=== PATIENT | male | born 1995 | race African-American/Black ===

== ENCOUNTER 2017-09-15 16:57 | Emergency (ER) | payer OTHER ==
[~2017-09-15] VITALS: Ht 175.3 cm; Wt 72.7 kg
[~2017-09-15 16:57] MED LIST: DEPAKOTE ER500 MG PO; ENDOCET 5-3251 EACH PO; LAMICTAL25 MG PO; LITHIUM CARBON450 MG PO; NAPROSYN500 MG PO; NORCO 5/3251 TABLET PO; PRAZOSIN HCL1 MG PO; RISPERDAL; RISPERDAL0.5 MG PO; RISPERIDONE1 MG PO
[2017-09-15 17:49] LABS: HEMATOCRIT 42.1 % (38.0-50.0); HEMOGLOBIN 12.9 G/DL (12.5-16.6); MCH 27.9 PG (29.0-34.0); MCHC 30.6 G/DL (30.0-36.0); MCV 90.9 FL (86-99); PLATELET COUNT 211 K/uL (156-360); RBC DIS.WIDTH-CV 12.3 % (11.8-14.6); RBC DIS.WIDTH-SD 41.4 % (39-53); RED BLOOD COUNT 4.63 M/uL (4.00-5.50); WHITE BLOOD COUNT 5.9 K/uL (4.1-10.2)
[2017-09-15 18:00] LABS: CHLORIDE 105 mEq/L (99-109); POTASSIUM 4.3 mEq/L (3.7-5.4); SODIUM 138 mEq/L (136-147)
[2017-09-15 18:02] LABS: GLUCOSE 69 mg/dL (70-99)
[2017-09-15 18:06] LABS: CREATININE 1.1 mg/dL (0.6-1.3); GFR ESTIMATE (CALCULATED) > 59 mL/min/ (58.99-99999)
[2017-09-15 18:07] LABS: UREA NITROGEN (BUN) 9 mg/dL (9-23)
[2017-09-15 18:10] LABS: TROP-I INTERPRETATION NEGATIVE; TROPONIN-I < 0.01 ng/mL (0.0-0.30)
[2017-09-15 20:07] VITALS: BP 147/91
== END 2017-09-15 20:09 | disposition home or self-care (01) ==
LOC: EME 16:57
PROVIDERS: Emergency Medicine
DX: R42 Dizziness and giddiness (principal); E86.0 Dehydration; F32.9 Major depressive disorder, single episode, unspecified; F43.10 Post-traumatic stress disorder, unspecified; R56.9 Unspecified convulsions
CPT/HCPCS: 80048; 84484; 85027; 93005; 99281; 99284; J7030

== ENCOUNTER 2017-09-18 09:55 | Emergency (ER) | payer OTHER ==
[~2017-09-18] VITALS: Ht 175.3 cm; Wt 72.7 kg
[2017-09-18 10:37] LABS: HEMATOCRIT 42.9 % (38.0-50.0); HEMOGLOBIN 13.4 G/DL (12.5-16.6); MCH 28.3 PG (29.0-34.0); MCHC 31.2 G/DL (30.0-36.0); MCV 90.5 FL (86-99); RBC DIS.WIDTH-CV 12.2 % (11.8-14.6); RBC DIS.WIDTH-SD 40.3 % (39-53); RED BLOOD COUNT 4.74 M/uL (4.00-5.50); WHITE BLOOD COUNT 5.3 K/uL (4.1-10.2)
[2017-09-18 10:49] LABS: ALBUMIN 4.1 g/dL (3.2-4.8); CHLORIDE 104 mEq/L (99-109); SODIUM 138 mEq/L (136-147)
[2017-09-18 10:52] LABS: TOTAL PROTEIN 7.6 g/dL (6.4-8.3)
[2017-09-18 10:53] LABS: GLUCOSE 94 mg/dL (70-99)
[2017-09-18 10:54] LABS: TOTAL BILIRUBIN 0.4 mg/dL (0.0-1.0)
[2017-09-18 10:55] LABS: ALKALINE PHOSPHATASE 46 IU/L (3-129); CREATININE 1.2 mg/dL (0.6-1.3); GFR ESTIMATE (CALCULATED) > 59 mL/min/ (58.99-99999)
[2017-09-18 10:56] LABS: UREA NITROGEN (BUN) 7 mg/dL (9-23)
[2017-09-18 10:57] LABS: AST (GOT) 25 IU/L (2-34)
[2017-09-18 10:58] LABS: ALT (GPT) 27 IU/L (3-49)
[2017-09-18 11:16] LABS: PLAT.SUFFICIENCY ADEQUATE; PLATELET COUNT 209 K/uL (156-360)
[2017-09-18 11:46] LABS: APPEARANCE CLEAR ((CLEAR)); BILIRUBIN NEGATIVE; BLOOD NEGATIVE; COLOR YELLOW ((YELLOW)); GLUCOSE (STRIP) NEGATIVE; KETONES NEGATIVE; LEUKOCYTES NEGATIVE; NITRITE NEGATIVE; PROTEIN (STRIP) NEGATIVE; SPECIFIC GRAVITY 1.013 (1.000-1.030); UCUL ADDED? NO; UROBILINOGEN 0.2 MG/DL (0.2-1.0)
[2017-09-18 15:23] VITALS: BP 121/83
== END 2017-09-18 15:24 | disposition home or self-care (01) ==
LOC: EME 09:55
DX: E86.0 Dehydration (principal); R42 Dizziness and giddiness; F31.9 Bipolar disorder, unspecified; R56.9 Unspecified convulsions; F41.9 Anxiety disorder, unspecified
CPT/HCPCS: 80053; 80178; 81003; 85027; 99281; 99285; J7030

== ENCOUNTER 2017-11-15 18:04 | Emergency (ER) | payer OTHER ==
[~2017-11-15] VITALS: Ht 175.3 cm; Wt 72.3 kg
[2017-11-15 20:02] LABS: AMPHETAMINE NEGATIVE (500 ng/mL); BARBITURATES NEGATIVE (200 ng/mL); BENZODIAZEPINES NEGATIVE (150 ng/mL); BUPRENORPHINE NEGATIVE (10 ng/mL); COCAINE NEGATIVE (150 ng/mL); METHADONE NEGATIVE (200 ng/mL); METHAMPHETAMINE NEGATIVE (500 ng/mL); OPIATES (MORPHINE) NEGATIVE (100 ng/mL); OXYCODONE NEGATIVE (100 ng/mL); PHENCYCLIDINE NEGATIVE (25 ng/mL); PROPOXYPHENE NEGATIVE (300 ng/mL); THC CANNABINOIDS NEGATIVE (50 ng/mL); TRICYCLIC ANTIDEPRESSANTS NEGATIVE (300 ng/mL)
[2017-11-15 20:09] LABS: HEMATOCRIT 42.7 % (38.0-50.0); HEMOGLOBIN 13.2 G/DL (12.5-16.6); MCH 27.6 PG (29.0-34.0); MCHC 30.9 G/DL (30.0-36.0); MCV 89.1 FL (86-99); PLATELET COUNT 283 K/uL (156-360); RBC DIS.WIDTH-CV 12.2 % (11.8-14.6); RBC DIS.WIDTH-SD 40.3 % (39-53); RED BLOOD COUNT 4.79 M/uL (4.00-5.50); WHITE BLOOD COUNT 7.1 K/uL (4.1-10.2)
[2017-11-15 20:22] LABS: CHLORIDE 104 mEq/L (99-109); POTASSIUM 3.6 mEq/L (3.7-5.4); SODIUM 138 mEq/L (136-147)
[2017-11-15 20:24] LABS: GLUCOSE 113 mg/dL (70-99)
[2017-11-15 20:27] LABS: SERUM ETHYL ALCOHOL < 10 mg/dL
[2017-11-15 20:28] LABS: CREATININE 1.1 mg/dL (0.6-1.3); GFR ESTIMATE (CALCULATED) > 59 mL/min/ (58.99-99999)
[2017-11-15 20:29] LABS: UREA NITROGEN (BUN) 9 mg/dL (9-23)
[2017-11-15 22:26] VITALS: BP 118/68
== END 2017-11-15 22:27 | disposition home or self-care (01) ==
LOC: EME 18:04
DX: F34.81 Disruptive mood dysregulation disorder (principal); F43.21 Adjustment disorder with depressed mood; F32.9 Major depressive disorder, single episode, unspecified; F43.10 Post-traumatic stress disorder, unspecified; F41.9 Anxiety disorder, unspecified
CPT/HCPCS: 80048; 85027; 90839; 99281; 99285; G0480

== ENCOUNTER 2017-12-03 19:58 | Emergency (ER) | payer OTHER ==
[~2017-12-03] VITALS: Ht 175.3 cm; Wt 63.9 kg
[2017-12-03 20:43] LABS: BASOPHIL (%) 0.9 % (0-1); BASOPHIL COUNT 0.1 K/uL (0-0.1); EOSINOPHIL (%) 2.9 % (0-5); EOSINOPHIL COUNT 0.3 K/uL (0-0.3); HEMATOCRIT 42.3 % (38.0-50.0); HEMOGLOBIN 13.3 G/DL (12.5-16.6); IMMATURE GRANULOCYTE (%) 0.2 % (0.0-0.7); LYMPHOCYTE (%) 34.9 % (15-42); LYMPHOCYTE COUNT 3.1 K/uL (1.0-2.8); MCHC 31.4 G/DL (30.0-36.0); MCV 89.1 FL (86-99); MONOCYTE (%) 8.2 % (3-12); MONOCYTE COUNT 0.7 K/uL (0-0.8); NEUTROPHIL (%) 52.9 % (45-76); NEUTROPHIL COUNT 4.7 K/uL (1.8-6.4); PLATELET COUNT 252 K/uL (156-360); RBC DIS.WIDTH-CV 12.4 % (11.8-14.6); RBC DIS.WIDTH-SD 40.6 % (39-53); RED BLOOD COUNT 4.75 M/uL (4.00-5.50)
[2017-12-03 20:56] LABS: ALBUMIN 4.3 g/dL (3.2-4.8); CHLORIDE 104 mEq/L (99-109); POTASSIUM 4.1 mEq/L (3.7-5.4); SODIUM 138 mEq/L (136-147)
[2017-12-03 20:58] LABS: AMPHETAMINE NEGATIVE (500 ng/mL); BARBITURATES NEGATIVE (200 ng/mL); BENZODIAZEPINES NEGATIVE (150 ng/mL); COCAINE NEGATIVE (150 ng/mL); METHADONE NEGATIVE (200 ng/mL); METHAMPHETAMINE NEGATIVE (500 ng/mL); OPIATES (MORPHINE) NEGATIVE (100 ng/mL); OXYCODONE NEGATIVE (100 ng/mL); PHENCYCLIDINE NEGATIVE (25 ng/mL); THC CANNABINOIDS NEGATIVE (50 ng/mL); TRICYCLIC ANTIDEPRESSANTS NEGATIVE (300 ng/mL)
[2017-12-03 20:58] LABS: GLUCOSE 101 mg/dL (70-99)
[2017-12-03 20:59] LABS: BUPRENORPHINE NEGATIVE (10 ng/mL); PROPOXYPHENE NEGATIVE (300 ng/mL)
[2017-12-03 20:59] LABS: TOTAL PROTEIN 7.8 g/dL (6.4-8.3)
[2017-12-03 21:00] LABS: TOTAL BILIRUBIN 0.5 mg/dL (0.0-1.0)
[2017-12-03 21:01] LABS: SERUM ETHYL ALCOHOL < 10 mg/dL
[2017-12-03 21:02] LABS: ALKALINE PHOSPHATASE 56 IU/L (3-129); CREATININE 1.1 mg/dL (0.6-1.3); GFR ESTIMATE (CALCULATED) > 59 mL/min/ (58.99-99999)
[2017-12-03 21:03] LABS: UREA NITROGEN (BUN) 14 mg/dL (9-23)
[2017-12-03 21:04] LABS: AST (GOT) 39 IU/L (2-34)
[2017-12-03 21:05] LABS: ALT (GPT) 27 IU/L (3-49)
[2017-12-04 00:30] VITALS: BP 132/78
== END 2017-12-04 00:35 ==
LOC: EME 19:58
PROVIDERS: Emergency Medicine
DX: F31.9 Bipolar disorder, unspecified (principal); R45.851 Suicidal ideations
CPT/HCPCS: 80053; 85025; 90837; 99281; 99285; G0480